=== PATIENT | female | born 1970 | race Hispanic/Latino ===

== ENCOUNTER 2017-10-01 00:23 | Emergency (ER) | payer OTHER ==
[2017-10-01] MEDS ORDERED: Sodium Chloride 0.9% 1,000 ML IV STA (00:51)
--- NOTE | 2017-10-01 00:53 | ED PDOC ---
HPI: Psych/Substance Abuse Time Seen by Provider: 10/01/17 00:39 Chief Complaint (Nursing): Alcohol Ingestion Chief Complaint (Provider): etoh History Per: Patient, EMS, Other (friend) Additional Complaint(s): 46 y/o female brought in by EMS for public intoxication. Patient found outside her apartment intoxicated, vomiting. Patient awake upon arrival, states she "drank too much". Denies acute medical or psychiatric complaints. Past Medical History Reviewed: Historical Data, Nursing Documentation, Vital Signs Vital Signs: Last Vital Signs Temp 97.1 F L 10/01/17 00:28 Pulse 103 H 10/01/17 00:28 Resp 18 10/01/17 00:28 BP 135/89 10/01/17 00:28 Pulse Ox 94 L 10/01/17 00:28 - Medical History PMH: No Chronic Diseases - Surgical History Surgical History: No Surg Hx - Family History Family History: States: No Known Family Hx - Living Arrangements Living Arrangements: With Family - Allergies Allergies/Adverse Reactions: Allergies Allergy/AdvReac Type Severity Reaction Status Date / Time Unobtainable Allergy Verified 10/01/17 00:27 Review of Systems ROS Statement: Except As Marked, All Systems Reviewed And Found Negative Gastrointestinal: Positive for: Vomiting Physical Exam - Reviewed Nursing Documentation Reviewed: Yes Vital Signs Reviewed: Yes - Physical Exam Appears: Positive for: Well, Non-toxic, No Acute Distress Head Exam: Positive for: ATRAUMATIC, NORMAL INSPECTION, NORMOCEPHALIC Skin: Positive for: Normal Color Eye Exam: Positive for: Normal appearance ENT: Positive for: Normal ENT Inspection Cardiovascular/Chest: Positive for: Regular Rate, Rhythm Respiratory: Positive for: Normal Breath Sounds Gastrointestinal/Abdominal: Positive for: Normal Exam Back: Positive for: Normal Inspection Extremity: Positive for: Normal ROM Neurologic/Psych: Positive for: Alert, Oriented - Laboratory Results Result Diagrams: 10/01/17 01:01 10/01/17 01:01 - ECG O2 Sat by Pulse Oximetry: 94 - Progress ED Course And Treament: labs, IV fluids, IV zofran 2:45 Patient awake, alert, oriented x3. Ambulating steady gait. Tolerating PO. States she is feeling better and would like to be discharged. Friends at bedside to escort patient home Patient requires no furhter intervention in the ED and is stable for discharge. Patient was educated on lab findings Return precautions given Disposition - Clinical Impression Clinical Impression: Acute alcohol intoxication - Patient ED Disposition Is Patient to be Admitted: No Counseled Patient/Family Regarding: Studies Performed, Diagnosis, Need For Followup - Disposition Disposition: Routine/Home Disposition Time: 02:41 Condition: IMPROVED Instructions: Alcohol Use - When Is Drinking a Problem?
[2017-10-01 01:13] LABS: BASO % 0.5 % (0.0-2.0); EOS # 0.1 K/uL (0.0-0.7); EOS % 1.8 % (0.0-4.0); HEMOGLOBIN 13.6 g/dL (12.0-16.0); LYMPH # 1.8 K/uL (1.0-4.3); LYMPH % 22.8 % (20.0-40.0); MEAN CELL VOLUME 90.8 fl (81.0-99.0); MEAN CORPUSCULAR HEMOGLOBIN 31.3 pg (27.0-31.0); MEAN CORPUSCULAR HGB CONC 34.5 g/dL (33.0-37.0); MEAN PLATELET VOLUME 8.5 fl (7.2-11.7); MONO # 0.5 K/uL (0.0-0.8); MONO % 6.2 % (0.0-10.0); NEUT # 5.3 K/uL (1.8-7.0); NEUT % 68.7 % (50.0-75.0); NRBC % 0.1 % (0.0-0.0); RBC 4.34 Mil/uL (3.80-5.20); RED CELL DISTRIBUTION WIDTH 12.8 % (11.5-14.5); WHITE BLOOD COUNT 7.7 K/uL (4.8-10.8)
[2017-10-01 01:17] LABS: ALB/GLOB RATIO 1.7 (1.0-2.1); ALBUMIN 4.4 g/dL (3.5-5.0); ALT/SGPT 27 U/L (9-52); AST/SGOT 35 U/L (14-36); BLOOD UREA NITROGEN 8 mg/dl (7-17); CALCIUM 8.8 mg/dL (8.4-10.2); GFR AFRICAN-AMERICAN > 60; GFR NON-AFRICAN AMERICAN > 60
[2017-10-01 03:04] VITALS: O2SAT 100
[2017-10-01 07:54] VITALS: BP 133/86; PULSE 74; RESP 16; TEMP 98.3
== END 2017-10-01 04:55 | disposition home or self-care (01) ==
LOC: H.ER 00:23
DX: F10.129 Alcohol abuse with intoxication, unspecified (principal); Y90.5 Blood alcohol level of 100-119 mg/100 ml
CPT/HCPCS: 80053; 80320; 82948; 84703; 85025; 96374; 99282; J2405; J7030